=== PATIENT | male | born 1980 | race African-American/Black ===

== ENCOUNTER 2025-04-17 08:19 | Outpatient (AMB) | payer OTHER, SELFPAY ==
--- OUTSIDE RECORDS SUMMARY | 2025-04-17 08:40 | XMS_ITS | Clinical Summary ---
Author Organization [facility] Address [address] [place] [address] Care Team Providers Care Founding Partner Name Role Phone Unavailable Primary Care Provider Unavailabl e Social History Tobacco Use Types Packs/Day Years Used Date Smoking Tobacco: Never Assessed Sex and Gender Information Value Date Recorded Sex Assigned at Not on file Legal Sex Male 9:35 AM EST Gender Identity Not on file Sexual Orientation Not on file Plan of Treatment Health Maintenance Due Date Last Done Comments DTaP,Tdap,and Td Vaccines (1 - Tdap) 2000 Hepatitis B Vaccines (1 of 3 - 19+ 3-dose series) 2000 HPV Vaccines (1 - 3-dose SCD M series) 2008 Depression Screening 06/26/2024 COVID-19 Vaccine (1 - 2023-2 5 season) 2025 Influenza Vaccine (#1) 2025 RSV Immunization Adult Patie nts (1 - 1-dose 75+ series) 2056 HIB Vaccines Aged Out No longer eligi ble based on patient's age to complete this topic Hepatitis A Vaccines Aged Out No long er eligible based on patient's age to complete this topic IPV Vaccines Aged Out No longer eligi ble based on patient's age to complete this topic MMR Vaccines Aged Out No longer eligi ble based on patient's age to complete this topic Meningococcal ACWY Vaccine Aged Out N o longer eligible based on patient's age to complete this topic Meningococcal B Vaccine Aged Out No l onger eligible based on patient's age to complete this topic Pneumococcal Vaccine: Pediat rics (0 to 5 Years) and At-Risk Patients (6 to 49 Years) Aged Out No longer eligible b ased on patient's age to complete this topic RSV Immunization Patients Un jeyson 20 months Aged Out No longer eligible b ased on patient's age to complete this topic Varicella Vaccines Aged Out No longer eligible based on patient's age to complete this topic
--- NOTE | 2025-04-17 08:42 | A.OFFPC_ITS ---
Vital Signs 04/17/25 08:44 Height 6 ft 0.44 in Weight 293 lb 2 oz BMI 39.3 BP 141/75 H Blood Pressure Location Lt brachial Position Sitting Respiration 16 Pulse 65 Pulse Source Pulse Oximeter Temp 98.3 F Temp Source Oral Pulse Oximetry (%) 97 Oxygen Delivery Method Room Air Intake Visit Reasons: [employer] // Neck back pain Cooling Pan Tender Required: No Accompanied by: Self / Same As Patient Allergies No Known Allergies Allergy (Verified 04/17/25 08:43) Tobacco use date assessed: 04/17/25 Dental Screening Dental Screen Date: 04/17/25 Did you have a dental visit in the last 12 months?: Yes Did you have a dental problem in the last 6 months where you did not have access to dental care?: No Was dental information given to patient?: Patient has dentist HPI HPI Comments History of Present Illness Details Consent Patient was informed and verbally consented to the use of an ambient scribe for clinic note documentation during this visit. History of Present Illness The patient is a 45-year-old male presentingto initiate care and evaluation of muscle tension and myalgia. Muscle tension: The patient reports experiencing muscle tension primarily in the neck region, which has been intermittent and sometimes severe, affecting his ability to move his neck. The tension is described as muscular and does not radiate to other areas. He does not use any medication for relief but engages in stretching exercises at the gym. Myalgia: The patient describes myalgia associated with muscle tension, noting that it is likely related to posture and possibly exacerbated by his sleeping habits. He does not use pillows frequently and has not identified specific triggers for the pain. No prior interventions have been undertaken, and he has no history of similar issues. 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 - Substance Use: Denies smoking, alcohol , and drug use. Family History: - No family history of diabetes or other significant medical conditions reported. Review of Systems - Musculoskeletal: Reports intermittent neck pain and muscle tension. Denies radiation of pain. 10-point ROS reviewed and negative excep t as noted in HPI Past Medical History - No significant past medical history re ported. Health Maintenance - Preventative care: Full body physical examination planned. - Screening: Comprehensive panel of labo ratory tests including CBC, metabolic panel, A1c, cholesterol, vitamin B12, folate, calcium, urine analysis, and STI screenings ordered. Physical Exam General: Well-appearing, in no acute distress. Vital signs: Within normal limits. HEENT: Normocephalic, atraumatic. PERRLA, EOMI. Conjunctiva clear, sclera anicteric. Oropharynx clear, mucous membranes moist. TMs intact bilaterally. Neck: Supple, no lymphadenopathy, no thyromegaly, no JVD or carotid bruits. Reports occasional neck pain, described as muscle tension or myalgia, possibly related to posture. Cardiovascular: RRR, normal S1/S2, no murmurs, rubs, or gallops. Peripheral pulses 2+ and symmetric. No edema. Respiratory: Lungs clear to auscultation bilaterally, no wheezes, rales, or rhonchi. Normal effort. Abdomen: Soft, non-tender, non-distended. Normoactive bowel sounds. No hepatosplenomegaly, no masses. MSK: Full range of motion, no joint swelling or deformity. Normal gait. Reports muscle tension in the neck area, advised to use heat and ibuprofen for relief. Skin: Warm, dry, intact. No rashes, lesions, or pallor. Neuro: Alert and oriented x3. Cranial nerves II-XII intact. Strength 5/5 throughout. Sensation intact. Reflexes 2+ symmetric. Normal coordination and gait. Psych: Appropriate mood and affect. Normal judgment and insight. Plan 1. Muscle Tension - Prescribed ibuprofen 800 mg for pain a nd inflammation management. - Recommended use of heating pads to rel ax muscles and reduce inflammation. - Advised to monitor posture and avoid a ctivities that may exacerbate tension. 2. Myalgia - Suggested stretching exercises to teresa viate muscle tension. - Discussed potential impact of posture and sleeping habits on muscle tension. Discussion Notes I discussed with the patient the plan to conduct a comprehensive physical examination and laboratory tests to assess overall health status. We reviewed the importance of addressing muscle tension and myalgia through medication and lifestyle modifications. The patient was advised to return in two weeks for follow-up and review of lab results. Patient Instructions - Take ibuprofen 800 mg as needed for pa in and inflammation. - Use heating pads to relieve muscle ten malcolm. - Monitor posture and avoid activities t hat may worsen muscle tension. - Return in two weeks for follow-up and review of lab results. Medical Decision Making The decision to conduct a comprehensive physical examination and laboratory tests was based on the patient's request for a full body check-up and the presence of muscle tension and myalgia. The plan includes addressing muscle tension with ibuprofen and lifestyle modifications, with a follow-up scheduled to review lab results and adjust the management plan as necessary. Total time spent caring for the patient today was 30 minutes. This includes time spent before the visit reviewing the chart, time spent documenting, and time spent reviewing laboratory results, diagnostic imaging, medications, performing a medically necessary evaluation, counseling on diagnoses, care coordination, ordering appropriate tests, ordering appropriate medications. [facility] Medical History (Updated 04/17/25 @ 09:06 by Mino Lester MD) Myalgia Family History (Updated 04/17/25 @ 08:44 by Dawit Noe MA) Father No problems noted. Mother No problems noted. Social History Housing: House Patient Tobacco Use Status: Never used Tobacco service: No Current occupational status: employed Cognitive needs: No Hearing needs: No Vision needs: Yes (rx glasses) Questionnaire PHQ-9 Over the last 2 weeks, how often have you been bothered by any of the following problems? 1. Little interest or pleasure in doing things: not at all 2. Feeling down, depressed, or hopeless: not at all 3. Trouble falling or staying asleep, or sleeping too much: not at all 4. Feeling tired or having little energy: not at all 5. Poor appetite or overeating: not at all 6. Feeling bad about yourself - or that you are a failure or have let yourself or your family down: not at all 7. Trouble concentrating on things, such as reading the newspaper or watching television: not at all 8. Moving or speaking so slowly that other people could have noticed. Or the opposite - being so fidgety or restless that you have been moving around a lot more than usual: not at all 9. Thoughts that you would be better off or of hurting yourself in some way: not at all Total score: 0 Source: Developed by Drs. Martir Godoy, Elvia Kerns, Avery Marin and colleagues, with an educational austin from [facility]. Thrive Questionnaire Date Thrive assessed: 04/16/25 I am a: Patient What is your living situation today?: I have a steady place to live Within the past 12 months, did the food you bought not last and you didn't have the money to get more?: I choose not to answer this question Within the past 12 months, did you worry whether your food would run out before you got money to buy more?: I choose not to answer this question Do you have trouble paying for medicines?: No Do you have trouble getting transportation to medical appointments?: No Do you have trouble paying your heating and electricity bill?: No Do you have trouble taking care of your child, family member or friend?: No Do you have trouble with day-to-day activities such as bathing, preparing meals, shopping, managing finances, etc.?: No Are you currently unemployed and looking for a job?: No Are you interested in more education?: No Please select the resources that you would like help with: Utilities Currently or been in a relationship where the following occur: No concerns reported THRIVE Score: 0 AUDIT C Alcohol Use Questionnaire (AUDIT-C) 1. How often do you have a drink containing alcohol?: Monthly or less 2. How many drinks containing alcohol do you have on a typical day when you are drinking?: 1 or 2 3. How often do you have six or more drinks on one occasion?: Never Total Score: 1 CHUCK-7 AMB Questionnaire CHUCK-7 Feeling nervous, anxious, or on edge: 0 = Not at all Not being able to stop or control worryin = Not at all Worrying too much about different things: 0 = Not at all Trouble relaxin = Not at all Being so restless that it is hard to sit still: 0 = Not at all Becoming easily annoyed or irritable: 0 = Not at all Feeling afraid as if something awful might happen: 0 = Not at all Total CHUCK-7 score (0-4 normal; 5-9 mild; 10-14 moderate; 15-21 severe): 0 Source: Developed by Drs. Martir Godoy, Elvia Kerns, Avery Marin and colleagues, with an educational austin from [facility]. Physical exam (Primary Care) Vital Signs: Last Vital Signs Temp 98.3 F 04/17/25 08:44 Pulse 65 04/17/25 08:44 Resp 16 10/23/25 08:44 BP 141/75 H 04/17/25 08:44 Pulse Ox 97 04/17/25 08:44 Oxygen Delivery Method Room Air 04/17/25 08:44 BMI result Body Mass Index 39.3 Tobacco/Smoking Status: Tobacco use Status Tobacco use date assessed 04/17/25 04/17/25 08:49 Patient Tobacco Use Status Never used Tobacco 04/17/25 08:49 PHQ-9: PHQ-9 Score PHQ-9: Total score 0 04/17/25 08:49 Thrive Assessment: Date of Thrive Assessment Date Thrive assessed 04/16/25 04/17/25 08:49 Currently or been in a relationship where the following occur: No concerns reported Coding Level of Care Code New Pt Level 4 (75270) Diagnoses Muscle tension pain M79.10 Class 2 obesity E66.9 Elevated blood pressure reading R03.0 Assessment & Plan Assessment & Plan (1) Muscle tension pain: Code(s): M79.10 - Myalgia, unspecified site (2) Class 2 obesity: Code(s): E66.9 - Obesity, unspecified (3) Elevated blood pressure reading: Code(s): R03.0 - Elevated blood-pressure reading, without diagnosis of hypertension Plan Orders: Orders Complete Blood Count Auto Diff Today Z13.9 - Encounter for screening, unspecified Hemoglobin A1c Today Z13.9 - Encounter for screening, unspecified HIV Ab/Ag Today Z13.9 - Encounter for screening, unspecified Lipid Panel Today Z13.9 - Encounter for screening, unspecified Magnesium Today Z13.9 - Encounter for screening, unspecified UA CC w/rflx Micro + Cult Today Z13.9 - Encounter for screening, unspecified Vitamin B12 and Folate Today Z13.9 - Encounter for screening, unspecified Comprehensive Met. Panel Today Z13.9 - Encounter for screening, unspecified Hepatitis B Surface Antibody Today Z13.9 - Encounter for screening, unspecified Hepatitis B Surface Antigen Today Z13.9 - Encounter for screening, unspecified Hepatitis C Antibody Today Z13.9 - Encounter for screening, unspecified CT NG by PCR Urine Today Z13.9 - Encounter for screening, unspecified Vitamin D 1,25 dihydroxy Today Z13.9 - Encounter for screening, unspecified Medications: New ibuprofen 600 mg PO Q8H PRN 60 tabs 0RF pain M79.10 - Myalgia, unspecified site
[2025-04-17 08:44] VITALS: BP 141/75; PULSE 65; RESP 16; TEMP 36.8; O2SAT 97; BMI 39.3
== END 2025-04-17 08:50 | disposition home or self-care (01) ==
LOC: HO.HMCFMS 08:20
PROVIDERS: Visit Provider Student in an Organized Health Care Education/Training Program
DX: M79.10 Myalgia, unspecified site (principal); E66.9 Obesity, unspecified; R03.0 Elevated blood-pressure reading, without diagnosis of hypertension

== ENCOUNTER 2025-04-17 08:19 | Outpatient (REF) | payer OTHER, SELFPAY ==
[2025-04-17 13:13] LABS: MANUAL DIFF FLAG NO
[2025-04-17 13:16] LABS: Appearance Urine Clear; Glucose Urine UA Negative (Negative); PH >= 9.0 (5.0-9.0); Specific Gravity - Urine 1.025 (1.005-1.025); UMIC TRIGGER UACC YES
[2025-04-17 13:21] LABS: Hematocrit 43.5 % (42.0-52.0); Hemoglobin 14.2 g/dl (14.0-18.0); Imm Gran Abs Auto 0.00 X10*3/uL (0.00-0.03); Imm Gran Pct Auto 0.0 % (0.0-0.4); Lymphocytes Absolute Auto 1.7 X10*3/uL (1.2-4.9); Mean Corpuscular HGB Conc 32.6 g/dl (31.0-36.0); Mean Corpuscular Hemoglobin 28.5 pg (27.0-33.0); Mean Corpuscular Volume 87.2 fL (80.0-98.0); NRBC Abs Auto 0.000 X10*3/uL (0.0-0.012); NRBC Pct Auto 0.0 /100WBC (0.0-0.2); Platelet Count 191 X10*3/uL (160-400); Red Blood Count 4.99 X10*6/uL (4.60-5.80); White Blood Count 3.7 X10*3/uL (4.8-10.8)
[2025-04-17 13:51] LABS: Alanine Aminotransferase 29 U/L (0-40); Albumin Level 4.2 g/dL (3.5-5.0); Alkaline Phosphatase 69 U/L (39-117); Anion Gap 8 (12-20); Aspartate Amino Transferase 41 U/L (5-37); Blood Urea Nitrogen 13 mg/dL (9-16); Calcium 8.6 mg/dL (8.4-10.2); Carbon Dioxide 28 mmol/L (22-29); Chloride 107 mmol/L (96-108); Cholesterol 205 mg/dL (<200); Estimated Glomerular Filt Rate > 60; HDL Cholesterol 37 mg/dL (>40); Magnesium 2.2 mg/dL (1.6-2.6); Potassium 4.1 mmol/L (3.3-5.1); Sodium 139 mmol/L (135-145); Total Protein 7.2 g/dL (6.5-8.0); Triglycerides 141 mg/dL (<150)
[2025-04-17 14:11] LABS: Folate 8.5 ng/mL (> or = 4.0); Vitamin B12 300 pg/mL (200-900)
[2025-04-17 15:14] LABS: CT PCR Urine NOT DETECTED (Not Detect.); NG PCR Urine NOT DETECTED (Not Detect.)
[2025-04-18 04:30] LABS: HBS Num1 18.94 mIU/mL (0-7.99); HBsAGNum1 0.38 S/CO (0.00-0.99); HIV Num 1 0.06 S/CO (0.00-0.99); Hepatitis B Surface Antigen Negative (Negative); ~HepC Num1 0.08 S/CO (0.00-0.79); ~Hepatitis B Surface Antibody REACTIVE (Nonreactive); ~Hepatitis C Antibody Nonreactive (Nonreactive)
[2025-04-20 17:13] LABS: VITAMIN D (1,25 OH) D3 60 pg/mL; Vit D (1,25-Dihydroxy) Total 60 pg/mL (18-72); Vitamin D (1,25 OH) D2 <8 pg/mL
== END 2025-04-17 08:20 | disposition home or self-care (01) ==
LOC: HO.HKASLDS 08:19
PROVIDERS: PCP Student in an Organized Health Care Education/Training Program; Visit Provider Student in an Organized Health Care Education/Training Program
DX: R03.0 Elevated blood-pressure reading, without diagnosis of hypertension (principal); M79.10 Myalgia, unspecified site; E66.9 Obesity, unspecified; Z13.1 Encounter for screening for diabetes mellitus; Z68.39 Body mass index [BMI] 39.0-39.9, adult
CPT/HCPCS: 80053; 80061; 81001; 82607; 82652; 82746; 83036; 83735; 85025; 86706; 86803; 87340; 87389; 87491; 87591; 96127

== ENCOUNTER 2025-05-01 10:23 | Outpatient (AMB) | payer OTHER, SELFPAY ==
[2025-05-01 10:26] VITALS: BP 135/74; PULSE 69; RESP 16; TEMP 36.6; O2SAT 97; BMI 39.0
--- NOTE | 2025-05-01 10:26 | A.OFFPC_ITS ---
Vital Signs 05/01/25 10:26 Height 6 ft 0.44 in Weight 291 lb 2 oz BMI 39.0 BP 135/74 Blood Pressure Location Rt brachial Position Sitting Respiration 16 Pulse 69 Pulse Source Pulse Oximeter Temp 98 F Temp Source Oral Pulse Oximetry (%) 97 Oxygen Delivery Method Room Air Intake Visit Reasons: 2 wk f/u Allergies No Known Allergies Allergy (Verified 05/01/25 10:27) Medication List - Last Reconciled 05/01/25 by Mino Lester MD ibuprofen 600 mg PO Q8H PRN Tobacco use date assessed: 04/17/25 Dental Screening Dental Screen Date: 04/17/25 HPI HPI Comments History of Present Illness Details History of Present Illness The patient is a 45-year-old male presenting for a review of laboratory results. Prediabetes: The patient was found to have a hemoglobin A1c of 5.7%, placing him at the threshold for prediabetes. Hyperlipidemia: The patient's laboratory results show an LDL cholesterol of 140 mg/dL, which is above the recommended level of less than 100 mg/dL, and an HDL cholesterol of 37 mg/dL, which is below the desired level of over 40 mg/dL. His total cholesterol is 205 mg/dL. He also has a mildly elevated liver enzyme level of 41, which is considered indicative of the elevated cholesterol. Social History: - The patient has a son and a daughter. - He does not work on weekends. - He was counseled on performing 30 bette russell of moderate-intensity cardio aerobic exercise daily, such as walking at a pace where he can still talk. Diagnostic Results: - Complete blood count: White blood cell count is low but considered clinically insignificant. - Comprehensive metabolic panel: Sodium, potassium, and renal function are normal. - Random glucose: Normal. - Hemoglobin A1c: 5.7%. - Lipid panel: Total cholesterol 205 mg/ dL, LDL 140 mg/dL, HDL 37 mg/dL. - Liver function test: Elevated liver en zyme at 41 (cutoff is 37). - Vitamin D, Folate, and B12: All levels are good. - Urinalysis: Normal. - Infectious disease screening: Negative for Hepatitis B, Hepatitis C, HIV, Chlamydia, and Gonorrhea. Past Medical History Health Maintenance - The patient was counseled on his new d iagnosis of prediabetes based on an HbA1c of 5.7%. - He was advised on lifestyle modificati ons, including dietary changes, to manage his prediabetes and hyperlipidemia. - Exercise counseling was provided, with a recommendation for 30 minutes of moderate-intensity cardio daily. - A referral will be placed for a mayda monroe dietitian to provide education on diet. - Plan to repeat labs in six months to m onitor progress. - Patient screened negative for Hepatiti s B, C, HIV, Chlamydia, and Gonorrhea. [facility] Medical History (Updated 05/01/25 @ 11:12 by Mino Lester MD) Class 2 obesity Elevated liver enzymes Prediabetes Hyperlipidemia Myalgia Family History (Updated 04/17/25 @ 08:44 by Dawit Noe MA) Father No problems noted. Mother No problems noted. Social History Housing: House Patient Tobacco Use Status: Never used Tobacco service: No Current occupational status: employed Cognitive needs: No Hearing needs: No Vision needs: Yes (rx glasses) Questionnaire Thrive Questionnaire Date Thrive assessed: 04/16/25 I am a: Patient What is your living situation today?: I have a steady place to live Within the past 12 months, did the food you bought not last and you didn't have the money to get more?: I choose not to answer this question Within the past 12 months, did you worry whether your food would run out before you got money to buy more?: I choose not to answer this question Do you have trouble paying for medicines?: No Do you have trouble getting transportation to medical appointments?: No Do you have trouble paying your heating and electricity bill?: No Do you have trouble taking care of your child, family member or friend?: No Do you have trouble with day-to-day activities such as bathing, preparing meals, shopping, managing finances, etc.?: No Are you currently unemployed and looking for a job?: No Are you interested in more education?: No Please select the resources that you would like help with: Utilities Currently or been in a relationship where the following occur: No concerns reported THRIVE Score: 0 Review of Systems Narrative Review of Systems - Constitutional: Reports feeling good. 10-point ROS reviewed and negative except as noted in HPI Physical exam (Primary Care) Vital Signs: Last Vital Signs Temp 98 F 05/01/25 10:26 Pulse 69 05/01/25 10:26 Resp 16 05/01/25 10:26 BP 135/74 05/01/25 10:26 Pulse Ox 97 05/01/25 10:26 Oxygen Delivery Method Room Air 05/01/25 10:26 BMI result Body Mass Index 39.0 Tobacco/Smoking Status: Tobacco use Status Tobacco use date assessed 04/17/25 05/01/25 10:33 Patient Tobacco Use Status Never used Tobacco 05/01/25 10:33 Thrive Assessment: Date of Thrive Assessment Date Thrive assessed 04/16/25 05/01/25 10:33 Currently or been in a relationship where the following occur: No concerns reported Narrative Physical Exam General: Well-appearing, in no acute distress. Vital signs: Within normal limits. HEENT: Normocephalic, atraumatic. PERRLA, EOMI. Conjunctiva clear, sclera anicteric. Oropharynx clear, mucous membranes moist. TMs intact bilaterally. Neck: Supple, no lymphadenopathy, no thyromegaly, no JVD or carotid bruits. Cardiovascular: RRR, normal S1/S2, no murmurs, rubs, or gallops. Peripheral pulses 2+ and symmetric. No edema. Respiratory: Lungs clear to auscultation bilaterally, no wheezes, rales, or rhonchi. Normal effort. Abdomen: Soft, non-tender, non-distended. Normoactive bowel sounds. No hepatosplenomegaly, no masses. MSK: Full range of motion, no joint swelling or deformity. Normal gait. Skin: Warm, dry, intact. No rashes, lesions, or pallor. Neuro: Alert and oriented x3. Cranial nerves II-XII intact. Strength 5/5 throughout. Sensation intact. Reflexes 2+ symmetric. Normal coordination and gait. Psych: Appropriate mood and affect. Normal judgment and insight. Coding Level of Care Code Est Pt Level 3 (72886) Diagnoses Prediabetes R73.03 Hyperlipidemia E78.5 Elevated liver enzymes R74.8 Myalgia M79.10 Class 2 obesity E66.9 Assessment & Plan Assessment & Plan (1) Prediabetes: Code(s): R73.03 - Prediabetes Category: Medical (2) Hyperlipidemia: Code(s): E78.5 - Hyperlipidemia, unspecified Category: Medical (3) Elevated liver enzymes: Code(s): R74.8 - Abnormal levels of other serum enzymes Category: Medical (4) Myalgia: Code(s): M79.10 - Myalgia, unspecified site Category: Medical (5) Class 2 obesity: Code(s): E66.9 - Obesity, unspecified Category: Medical Plan Consent Patient was informed and verbally consented to the use of an ambient scribe for clinic note documentation during this visit. Plan 1. Prediabetes - The patient's HbA1c of 5.7% indicates prediabetes. - Recommended lifestyle modifications, including dietary changes and regular exercise, to manage this condition. - A referral will be made to a registered dietitian for nutrition education. - Plan to repeat labs in six months to monitor response to interventions. 2. Hyperlipidemia - The patient has an LDL of 140, an HDL of 37, and a total cholesterol of 205. - A mildly elevated liver enzyme (41) is noted, likely related to the hyperlipidemia. - The primary management will be lifestyle modifications, including diet and exercise. - A referral to a registered dietitian will be placed for education. - Follow-up with repeat labs in six months is planned. Discussion Notes I reviewed the patient's laboratory results with him, explaining that his hemoglobin A1c of 5.7% places him at the threshold of prediabetes. I also discussed his cholesterol levels, including an LDL of 140 and HDL of 37, and the associated mild elevation in a liver enzyme, which is likely secondary to fat storage in the liver. I emphasized that these conditions can be managed with lifestyle changes, specifically improvements in diet and initiating regular exercise. I advised performing 30 minutes of moderate-intensity exercise daily. I am placing a referral to a registered dietitian for further education and guidance. We will repeat the lab work in six months to assess his progress. Patient Instructions - Your lab results show that you are at the beginning stage of prediabetes and have high cholesterol. - It is important to make changes to your diet and be mindful of what you eat. - Try to walk for 30 minutes a day at a speed where you can still hold a conversation. - I have requested that a registered dietitian contact you to provide education about diet choices. If you do not hear from them within one to two weeks, please call the number that will be provided to you. - We will repeat your blood tests in six months to see how you are doing. Medical Decision Making The patient is a 45-year-old male who presented for a review of his recent lab work. He reports feeling well and has no complaints. Laboratory results are notable for a new diagnosis of prediabetes with an HbA1c of 5.7% and hyperlipidemia, with an LDL of 140 mg/dL and a low HDL of 37 mg/dL. There is also a mild transaminitis (ALT 41), which is likely secondary to hepatic steatosis related to his dyslipidemia. Given that these findings are at the very early stages, the initial management will consist of non-pharmacological interventions. The primary recommendation is lifestyle modification, including dietary changes and 30 minutes of daily moderate-intensity exercise. A referral to a registered dietitian has been placed to provide the patient with structured dietary education to facilitate these changes. The plan is to monitor his progress and repeat labs in six months, at which point pharmacotherapy can be considered if there is no improvement. Total time spent caring for the patient today was 20 minutes. This includes time spent before the visit reviewing the chart, time spent documenting, and time spent reviewing laboratory results, diagnostic imaging, medications, performing a medically necessary evaluation, counseling on diagnoses, care coordination Orders: Referrals Nurse Navigator Referral E78.5 - Hyperlipidemia, unspecified
--- OUTSIDE RECORDS SUMMARY | 2025-05-01 12:17 | XMS_ITS | Clinical Summary ---
Author Organization [facility] Address [address] [place] [address] Care Team Providers Care Gun Stocker Name Role Phone Unavailable Primary Care Provider [...]
== END 2025-05-01 10:42 | disposition home or self-care (01) ==
LOC: HO.HMCFMS 10:24
PROVIDERS: PCP Student in an Organized Health Care Education/Training Program; Visit Provider Student in an Organized Health Care Education/Training Program
DX: R73.03 Prediabetes (principal); E78.5 Hyperlipidemia, unspecified; R74.8 Abnormal levels of other serum enzymes; M79.10 Myalgia, unspecified site; E66.9 Obesity, unspecified